=== PATIENT | male | born 2000 | race Hispanic/Latino ===

== ENCOUNTER 2023-10-17 20:30 | Emergency (ER) | payer OTHER ==
[~2023-10-17] VITALS: Ht 180.3 cm; Wt 90.3 kg
[2023-10-17] MEDS ORDERED: DIPHTH,PERTUSS(ACELL),TET VAC 0.5 ML SYRINGE IM ONE (23:00)
[2023-10-17 23:24] VITALS: BP 132/89
== END 2023-10-17 23:25 | disposition home or self-care (01) ==
LOC: ED 20:30
DX: S01.111A Laceration without foreign body of right eyelid and periocular area, initial encounter (principal); W21.07XA Struck by softball, initial encounter; Y93.64 Activity, baseball; Z23 Encounter for immunization
CPT/HCPCS: 90715